=== PATIENT | female | born 1950 | race Caucasian/White ===

== ENCOUNTER 2024-10-28 16:52 | Emergency (ER) | payer MEDICARE, OTHER ==
[2024-10-28 17:10] VITALS: BP 175/75; PULSE 83; RESP 18; TEMP 98.3; O2SAT 100
--- NOTE | 2024-10-28 17:10 | ERPHSYRPT ---
- History of Present Illness Time Seen by Provider: 10/28/24 17:05 Source: patient Exam Limitations: no limitations Physician History: 74-year-old female with chronic renal failure stage V for which patient is undergoing hemodialysis. Today after dialysis patient started bleeding at the dialysis fistula site which constantly bleed for almost 2 hours so she got concerned and came to the emergency room. She has a packing put on the bleeding site which was soaked with the blood. She denies any other injury or bleeding. When patient came to the emergency room her bleeding was almost stopped there was very minimal oozing was coming from the puncture site at the fistula. Fistula has a normal flow. Timing/Duration: today Associated Symptoms: denies symptoms - Review of Systems Constitutional: No Symptoms Eyes: No Symptoms Ears, Nose, & Throat: No Symptoms Respiratory: No Symptoms Cardiac: No Symptoms Abdominal/Gastrointestinal: No Symptoms Genitourinary Symptoms: No Symptoms Musculoskeletal: No Symptoms Skin: No Symptoms Neurological: No Symptoms Endocrine: No Symptoms Hematologic/Lymphatic: Easy Bleeding (from AV fistula site right arm) - Past Medical History Neurological History: Peripheral Neuropathy, Other Cardiac History: Coronary Artery Disease, Hypertension Respiratory History: COPD, Sleep Apnea Endocrine Medical History: Diabetes Type II, Other Musculoskeletal History: Osteoarthritis Other Medical History: PSH: R TKA, 3 CARDIAC STENTS, HYSTERECTOMY, GALL BLADDER, BREAST BIOPSY. PMH: DIALYSIS 3X PER WEEK, PT USES 02 AT NIGHT, FATIGUE - Physical Exam General Appearance: no apparent distress Eye Exam: PERRL/EOMI Ears, Nose, Throat Exam: normal ENT inspection Neck Exam: normal inspection Respiratory Exam: normal breath sounds Cardiovascular Exam: regular rate/rhythm Gastrointestinal/Abdomen Exam: soft Pelvic Exam: not done Rectal Exam: deferred Back Exam: normal inspection Extremity Exam: normal inspection Neurologic Exam: alert, oriented x 3, cooperative Skin Exam: normal color SpO2 Interpretation: normal SpO2: 100 O2 Delivery: Room Air - Course Nursing assessment & vital signs reviewed: Yes - Progress Progress: improved Progress Note: 10/28/24 17:08 Pressure dressing applied. Patient bleeding was completely stopped. Patient is advised to keep that pressure dressing till tomorrow. If symptoms come back advised to come back to the emergency room Counseled pt/family regarding: diagnosis, need for follow-up Medical Desision Making - Independent Historian Additional History obtained from: Spouse - Risk of complications Minimal Risk: Minimal risk of morbidity - Departure Departure Disposition: Home Clinical Impression: Bleeding at insertion site Dialysis AV fistula malfunction Qualifiers: Encounter type: initial encounter Qualified Code(s): T82.590A - Other mechanical complication of surgically created arteriovenous fistula, initial encounter Condition: Stable Critical Care Time: No Referrals: FARA CONTRERAS MD [Primary Care Provider] - Follow up/PCP as directed Additional Instructions: Discharge/Care Plan WILLAM CAZARES was seen on 10/28/24 in the Emergency Room. The patient was counseled regarding Diagnosis,Lab results, Imaging studies, need for follow up and when to return to the Emergency Room. Prescriptions given: Discharge Note I have spoken with the patient and/or caregivers. I have explained the patient's condition, diagnosis and treatment plan based on the information available to me at this time. I have answered the patient's and/or caregiver's questions and addressed any concerns. The patient and/or caregivers have as good understanding of the patient's diagnosis, condition and treatment plan as can be expected at this point. The vital signs have been stable. The patient's condition is stable and appropriate for discharge from the emergency department. The patient will pursue further outpatient evaluation with the primary care physician or other designated or consulting physician as outlined in the discharge instructions. The patient and/or caregivers are agreeable to this plan of care and follow-up instructions have been explained in detail. The patient and/or caregivers have received these instruction. The patient/and or caregivers are aware that any significant change in condition or worsening of symptoms should prompt an immediate return to this or the closest emergency department or call 911. WILLAM CAZARES was seen on 10/28/24 n the Emergency Room. At that time you were treated for an emergent condition, during your visit Laboratory, Radiology and/or other procedures may have been ordered. It is very important that you follow-up with your Primary Care Physician FARA CONTRERAS MD within the next 24-48 hours to review your Emergency Room visit and the final results of testing that was ordered. Some test results such as Urine Cultures, Blood Cultures, and other cultures if ordered will not be finalized for 24-48 hours. If you do not have a Primary Care Provider please call the medical records department at [phone] ext [phone] to obtain a copy of your results or you may sign into our patient portal to obtain these results by visiting us @ [email or web address] and completing the following steps: 1. Click on the Patient Portal link 2. Click the Patient Self Enrollment Link to complete the enrollment form and entering your 3. Once the enrollment form is completed you will receive an email with a temporary ID and password at the email address you provided. 4. Next choose a user name and password. Your user name must be at least 4 characters long and your password must be at least 4 characters long. 5. Choose a security question from the list and provide your answer to the question. If you already have signed into the Health Portal you may access your Health Care Information 20/05 by the following steps: 1. Login to our website @ [email or web address] 2. Enter your original user name and password. FAQS The [facility] Health Portal is an online tool that contains your Lab Results, Radiology Reports, Visit History, Discharge Instructions and Health Summary Lab and Radiology Results will not be available for 72 hours on the portal. The Portal is a secure site, passwords are encryted and URLs are re-written so they cannot be copied and pasted. You and authorized family members are the only ones who can access your Portal. Also there is a timeout feature that protects your information if you leave the Portal page open. If you have technical difficulty please use the Contact Us link on the page this will allow you to submit any questions you have regarding the Portal or you may contact the Medical Record Department at [phone] ext [phone].
== END 2024-10-28 17:43 | disposition home or self-care (01) ==
LOC: ED 16:52
DX: T82.590A Other mechanical complication of surgically created arteriovenous fistula, initial encounter (principal); T82.838A Hemorrhage due to vascular prosthetic devices, implants and grafts, initial encounter; I12.0 Hypertensive chronic kidney disease with stage 5 chronic kidney disease or end stage renal disease; E11.22 Type 2 diabetes mellitus with diabetic chronic kidney disease; N18.5 Chronic kidney disease, stage 5; E11.42 Type 2 diabetes mellitus with diabetic polyneuropathy; Z99.2 Dependence on renal dialysis
CPT/HCPCS: 99281

== ENCOUNTER 2024-12-05 19:56 | Emergency (ER) | payer MEDICARE, OTHER ==
[2024-12-05 20:06] VITALS: TEMP 97.2
--- NOTE | 2024-12-05 20:14 | ERPHSYRPT ---
- History of Present Illness Historian: patient Exam Limitations: no limitations Physician History: Patient has a history of cardiovascular disease. She has had 3 stents. She began having chest pain at rest. She points to her sternal area. She said it radiated up to her neck on the left side. It did not go away or resolve. Is been pretty persistent for the last 2 hours. She has no shortness of breath. She does not have any abdominal pain. She denies nausea vomiting fever chills and other systemic symptoms. She has not had any diaphoresis either.She is on blood thinners Patient states that breathing makes the pain worse.She does not have any infectious symptoms. Allergies/Adverse Reactions: montelukast [From Singulair] Allergy (Verified 12/05/24 20:06) Sulfa (Sulfonamide Antibiotics) Allergy (Verified 12/05/24 20:06) metformin Adverse Reaction (Verified 12/05/24 20:06) Diarrhea morphine Adverse Reaction (Verified 12/05/24 20:06) Vomiting Home Medications: Albuterol Sulfate [Albuterol Sulfate Hfa] 2 puffs IH Q6H PRN PRN 12/05/24 [History] Amoxicillin/Potassium Clav [Amox-Clav 250-125 mg Tablet] 1 tab PO BID 12/05/24 [History] Ascorbic Acid [Vitamin C] 1,000 mg PO DAILY 12/05/24 [History] Aspirin 81 gm Chew [Baby Aspirin 81 mg Chew] 1 tab PO DAILY 12/05/24 [History] Atorvastatin Calcium 80 mg PO HS 12/05/24 [History] B Complex W-C No.20/Folic Acid [Juan J Caps Softgel] 1 tab PO DAILY 12/05/24 [History] Biotin/Lutein [Biotin Plus 5,000 Mcg Tablet] 1 tab PO DAILY 12/05/24 [History] Carbidopa/Levodopa [Carbidopa-Levo 25-100 mg Odt] 1 tab PO BID 12/05/24 [History] Clopidogrel Bisulfate [Plavix] 1 tab PO DAILY 12/05/24 [History] Diclofenac Sodium 1 tab PO BID 12/05/24 [History] Duloxetine HCl 30 mg [Cymbalta 30 MG Capsule] 1 tab PO BID 12/05/24 [History] Ezetimibe 10 mg [Zetia 10 MG] 1 tab PO HS 12/05/24 [History] Fexofenadine HCl [Emily Allergy] 180 mg PO DAILY 12/05/24 [History] Fludrocortisone Acetate 0.1 mg PO DAILY 12/05/24 [History] Fluticasone Propionate [24 Hour Allergy] 9.9 ml NS DAILY PRN PRN 12/05/24 [History] Gabapentin 600 mg PO HS 12/05/24 [History] Insulin Glargine,Hum.rec.anlog [Lantus] 30 units SQ HS 12/05/24 [History] Insulin Lispro [Humalog] 20 units SQ TID 12/05/24 [History] Meclizine HCl 25 mg [Antivert 25 mg] 1 tab PO HS PRN 12/05/24 [History] Methylprednisolone 4 mg [Medrol 4 mg] 1 tab PO DAILY 12/05/24 [History] Metoprolol Succinate 25 mg Xl* [Toprol-Xl 25MG Tablets] 1 tab PO DAILY 12/05/24 [History] Multivitamin,Therapeutic [Thera-Tabs] 1 tab PO BID 12/05/24 [History] Hx Tetanus, Diphtheria Vaccination/Date Given: Yes Hx Influenza Vaccination/Date Given: Yes Hx Pneumococcal Vaccination/Date Given: Yes Travel Risk - Emerging Infectious Disease Are you exhibiting symptoms associated with any current EIDs: No - Review of Systems Constitutional: No Symptoms Eyes: No Symptoms Ears, Nose, & Throat: No Symptoms Respiratory: No Symptoms Cardiac: Chest Pain Abdominal/Gastrointestinal: No Symptoms, No Abdominal Pain, No Nausea, No Vomiting Skin: No Symptoms Neurological: No Symptoms All Other Systems: Reviewed and Negative - Past Medical History Pertinent Past Medical History: Yes Neurological History: Peripheral Neuropathy, Other Cardiac History: Coronary Artery Disease, Hypertension Respiratory History: COPD, Sleep Apnea Endocrine Medical History: Diabetes Type II, Other Musculoskeletal History: Osteoarthritis History: Dialysis, Renal Disease Other Medical History: PSH: R TKA, 3 CARDIAC STENTS, HYSTERECTOMY, GALL BLADDER, BREAST BIOPSY. PMH: DIALYSIS 3X PER WEEK, PT USES 02 AT NIGHT, FATIGUE - Past Surgical History Past Surgical History: Yes Cardiac: Cardiac Stent Gastrointestinal: Cholecystectomy Genitourinary: Other Musculoskeletal: Joint Replacement Female Surgical History: Hysterectomy Other Surgical History: kidney stone removal, hernia, fatty tumor removal, right knee replacement, colonoscopy, egd, cardiac stents MID LAD and PROX-LAD - Social History Smoking Status: Never smoker Exposure to second hand smoke: No Drug Use: none - Social Determinants of Health Will the patient participate in the screening: Declined to provide - Nursing Vital Signs Nursing Vital Signs: Initial Vital Signs Temperature 97.2 F 12/05/24 20:00 Pulse Rate 95 H 12/05/24 20:00 Respiratory Rate 26 H 12/05/24 20:00 Blood Pressure 166/85 12/05/24 20:00 O2 Sat by Pulse Oximetry 93 L 12/05/24 20:00 Pain Scale Pain Intensity 8 - Physical Exam General Appearance: no apparent distress Eye Exam: PERRL/EOMI Ears, Nose, Throat Exam: normal ENT inspection Respiratory Exam: normal breath sounds, lungs clear, No chest tenderness, No respiratory distress Cardiovascular Exam: regular rate/rhythm, normal heart sounds, normal peripheral pulses Back Exam: normal inspection Extremity Exam: normal inspection Neurologic Exam: alert, oriented x 3 Skin Exam: normal color, warm, dry SpO2: 93 - Course Nursing assessment & vital signs reviewed: Yes EKG Interpreted by Me: Sinus Rhythm, NORMAL INTERVALS, NORMAL QRS, Ischemic ST-T changes (Possible ischemia in the lateral leads. An old EKG was not available for comparison.) Ordered Tests: Active Orders 24 hr Category Date Time Status EKG-ER Only STAT Care 12/05/24 20:20 Active CHEST 1 VIEW (PORTABLE) Stat Exams 12/05/24 21:09 Completed BLOOD CULTURE Stat Lab 12/05/24 23:12 Ordered BNPII [NT PRO BNPII] Stat Lab 12/05/24 21:30 Received CBC W DIFF Stat Lab 12/05/24 20:22 Completed CMP Stat Lab 12/05/24 20:22 Completed D-DIMER QUANTITATIVE Stat Lab 12/05/24 21:30 Completed Lactic Acid Stat Lab 12/05/24 23:12 Ordered TROPONIN Q4H Lab 12/05/24 20:22 Completed TROPONIN Q4H Lab 12/06/24 00:30 Ordered TROPONIN Q4H Lab 12/06/24 04:30 Ordered Medication Summary Generic Name Dose Route Start Last Admin Trade Name Freq PRN Reason Stop Dose Admin Lorazepam 1 mg 12/05/24 22:02 12/05/24 22:10 Lorazepam 2 Mg/1 Ml 2 Mg Vial IV 01/04/25 22:01 1 mg PRN PRN Administration CIWA SCORE Lab/Rad Data: Laboratory Result Diagrams 12/05/24 20:22 12/05/24 20:22 Laboratory Results 12/05/24 12/05/24 12/05/24 Range/Units 21:30 20:30 20:22 WBC (3.98-10.04) x10^3/uL RBC (3.93-5.22) x10^6/uL Hgb (11.2-15.7) g/dL Hct (34.1-44.9) % MCV (79.4-94.8) fL MCH (25.6-32.2) pg MCHC (32.2-35.5) g/dL RDW (11.7-14.4) % Plt Count (182-369) x10^3/uL MPV (9.4-12.3) fL Gran % (34.0-71.1) % Immature Gran % (Auto) (0.001-0.429) % Nucleat RBC Rel Count (0.00-0.2) % Eos # (Auto) (0.04-0.36) x10^3/uL Immature Gran # (Auto) (0.001-0.031) x10^3u/L Absolute Lymphs (auto) (1.18-3.74) x10^3/uL Absolute Monos (auto) (0.24-0.86) x10^3/uL Absolute Nucleated RBC (0.00-0.012) x10^3u/L Lymphocytes % (19.3-51.7) % Monocytes % (4.7-12.5) % Eosinophils % (0.7-5.8) % Basophils % (0.1-1.2) % Absolute Granulocytes (1.56-6.13) x10^3/uL Basophils # (0.01-0.08) x10^3/uL D-Dimer 1.84 H* (0.0-0.50) mg/L Sodium (135-145) mmol/L Potassium (3.5-5.1) mmol/L Chloride (98-107) mmol/L Carbon Dioxide (22-30) mmol/L Anion Gap (5-15) MEQ/L BUN (7-17) mg/dL Creatinine (0.52-1.04) mg/dL Estimated GFR ML/MIN Glucose (74-106) mg/dL Calcium (8.4-10.2) mg/dL Total Bilirubin (0.2-1.3) mg/dL AST (14-36) U/L ALT (0-35) U/L Alkaline Phosphatase (38-126) U/L Troponin I < 0.012 (0.000-0.033) ng/mL Serum Total Protein (6.3-8.2) g/dL Albumin (3.5-5.0) g/dL Influenza Type A Ag NEGATIVE (NEGATIVE) Influenza Type B Ag NEGATIVE (NEGATIVE) RSV (PCR) NEGATIVE (NEGATIVE) SARS-CoV-2 (PCR) NEGATIVE (NEGATIVE) 12/05/24 12/05/24 Range/Units 20:22 20:22 WBC 23.2 H (3.98-10.04) x10^3/uL RBC 2.59 L (3.93-5.22) x10^6/uL Hgb 7.6 L (11.2-15.7) g/dL Hct 24.8 L (34.1-44.9) % MCV 95.8 H (79.4-94.8) fL MCH 29.3 (25.6-32.2) pg MCHC 30.6 L (32.2-35.5) g/dL RDW 16.6 H (11.7-14.4) % Plt Count 411 H (182-369) x10^3/uL MPV 9.4 (9.4-12.3) fL Gran % 85.4 H (34.0-71.1) % Immature Gran % (Auto) 0.6 H (0.001-0.429) % Nucleat RBC Rel Count 0.0 (0.00-0.2) % Eos # (Auto) 0.51 H (0.04-0.36) x10^3/uL Immature Gran # (Auto) 0.15 H (0.001-0.031) x10^3u/L Absolute Lymphs (auto) 1.26 (1.18-3.74) x10^3/uL Absolute Monos (auto) 1.42 H (0.24-0.86) x10^3/uL Absolute Nucleated RBC 0.00 (0.00-0.012) x10^3u/L Lymphocytes % 5.4 L (19.3-51.7) % Monocytes % 6.1 (4.7-12.5) % Eosinophils % 2.2 (0.7-5.8) % Basophils % 0.3 (0.1-1.2) % Absolute Granulocytes 19.74 H (1.56-6.13) x10^3/uL Basophils # 0.07 (0.01-0.08) x10^3/uL D-Dimer (0.0-0.50) mg/L Sodium 138 (135-145) mmol/L Potassium 3.8 (3.5-5.1) mmol/L Chloride 95 L (98-107) mmol/L Carbon Dioxide 32 H (22-30) mmol/L Anion Gap 14.5 (5-15) MEQ/L BUN 32 H (7-17) mg/dL Creatinine 4.57 H (0.52-1.04) mg/dL Estimated GFR 9.4 ML/MIN Glucose 144 H (74-106) mg/dL Calcium 9.4 (8.4-10.2) mg/dL Total Bilirubin 0.80 (0.2-1.3) mg/dL AST 33 (14-36) U/L ALT 9 (0-35) U/L Alkaline Phosphatase 90 (38-126) U/L Troponin I (0.000-0.033) ng/mL Serum Total Protein 6.9 (6.3-8.2) g/dL Albumin 3.9 (3.5-5.0) g/dL Influenza Type A Ag (NEGATIVE) Influenza Type B Ag (NEGATIVE) RSV (PCR) (NEGATIVE) SARS-CoV-2 (PCR) (NEGATIVE) - Progress Progress: unchanged Air Movement: good Progress Note: Patient was stable throughout stay. We got a chest x-ray on her. There There was findings consistent with a pneumonia and some mild congestion.She did have an elevated white count.Her troponin was not elevated.She did have an elevated D-dimer but she is not really presenting as a PE. She is on Plavix already.I believe that her problem is a pneumonia. Her EKG was done and it was interpreted by me. There is no acute changes consistent with ACS.I spoke with the hospitalist at [facility] her name was Dr. Stoner. She agreed to accept the patient in transfer. I am going to start her on Zithromax and Rocephin I also ordered blood cultures and lactic acid. 12/05/24 23:13 12/05/24 23:14 - Departure Departure Disposition: Transfer Clinical Impression: Pneumonia Condition: Good Critical Care Time: No Referrals: FARA CONTRERAS MD [Primary Care Provider] - Follow up/PCP as directed
[2024-12-05 20:25] LABS: Absolute Neutrophil Ct (ANC) 19.74 x10^3/uL (1.56-6.13); BASOPHIL % 0.3 % (0.1-1.2); Basophil (Absolute #) 0.07 x10^3/uL (0.01-0.08); Eosinophil % 2.2 % (0.7-5.8); Eosinophil (Absolute #) 0.51 x10^3/uL (0.04-0.36); Hematocrit 24.8 % (34.1-44.9); Hemoglobin 7.6 g/dL (11.2-15.7); IMMATURE GRAN # 0.15 x10^3u/L (0.001-0.031); IMMATURE GRAN % 0.6 % (0.001-0.429); Lymphocyte (Absolute #) 1.26 x10^3/uL (1.18-3.74); Lymphocytes % 5.4 % (19.3-51.7); Mean Cell Volume 95.8 fL (79.4-94.8); Mean Corpuscular Hemoglobin 29.3 pg (25.6-32.2); Mean Corpuscular Hgb Concent. 30.6 g/dL (32.2-35.5); Mean Platelet Volume 9.4 fL (9.4-12.3); Monocyte (Absolute #) 1.42 x10^3/uL (0.24-0.86); Monocytes % 6.1 % (4.7-12.5); Neutrophil % 85.4 % (34.0-71.1); Platelet Count 411 x10^3/uL (182-369); Red Blood Count 2.59 x10^6/uL (3.93-5.22); Red Cell Distribution Width 16.6 % (11.7-14.4); White Blood Count 23.2 x10^3/uL (3.98-10.04)
[2024-12-05 20:37] LABS: ALBUMIN 3.9 g/dL (3.5-5.0); ANION GAP 14.5 MEQ/L (5-15); BILIRUBIN,TOTAL 0.8 mg/dL (0.2-1.3); Calcium 9.4 mg/dL (8.4-10.2); Creatinine 1 4.57 mg/dL (0.52-1.04); EST GLOMERULAR FILTRATION RATE 9.4 ML/MIN; Potassium 3.8 mmol/L (3.5-5.1); Total Protein 6.9 g/dL (6.3-8.2)
[2024-12-05 21:24] LABS: INFLUENZA A NEGATIVE (NEGATIVE); INFLUENZA B NEGATIVE (NEGATIVE); RESPIRATORY SYNCTIAL VIRUS NEGATIVE (NEGATIVE); SARS-CoV-2 Xpert Express NEGATIVE (NEGATIVE)
[2024-12-05] MEDS ORDERED: Ativan 2 MG/1 ML VIAL ONE (22:09)
[2024-12-05] MEDS: Ativan 2 MG/1 ML VIAL IV PRN (22:10)
--- NOTE | 2024-12-05 22:14 | XRAY ---
Indication: Chest pain. Comparison: None Portable chest demonstrates cardiomegaly, central vascular congestion, and small bibasilar effusions favoring cardiac decompensation/CHF. Superimposed pneumonia not completely excluded. Bony thorax intact with osteopenia and degenerative changes.
[2024-12-06 00:04] VITALS: BP 151/104; PULSE 109; RESP 21; O2SAT 100
== END 2024-12-06 00:20 | disposition short-term general hospital (02) ==
LOC: ED 19:56
DX: J18.9 Pneumonia, unspecified organism (principal); R07.9 Chest pain, unspecified; E11.42 Type 2 diabetes mellitus with diabetic polyneuropathy; I12.0 Hypertensive chronic kidney disease with stage 5 chronic kidney disease or end stage renal disease; E11.22 Type 2 diabetes mellitus with diabetic chronic kidney disease; N18.6 End stage renal disease; Z79.02 Long term (current) use of antithrombotics/antiplatelets; Z79.4 Long term (current) use of insulin; Z79.899 Other long term (current) drug therapy; Z99.2 Dependence on renal dialysis
CPT/HCPCS: 0241U; 36415; 71045; 80053; 83605; 83880; 84484; 85025; 85379; 87040; 93005; 96374; 99285; J2060

== ENCOUNTER 2024-12-31 12:07 | Emergency (ER) | payer MEDICARE, OTHER ==
[2024-12-31 12:24] VITALS: TEMP 98.2; O2SAT 98
[2024-12-31] MEDS ORDERED: DUONEB 0.5-3 MG/3 ml Neb IH ONE (12:36)
[2024-12-31 12:39] LABS: Absolute Neutrophil Ct (ANC) 9.24 x10^3/uL (1.56-6.13); BASOPHIL % 0.6 % (0.1-1.2); Basophil (Absolute #) 0.07 x10^3/uL (0.01-0.08); Eosinophil % 7.4 % (0.7-5.8); Eosinophil (Absolute #) 0.84 x10^3/uL (0.04-0.36); Hematocrit 27.7 % (34.1-44.9); Hemoglobin 8.6 g/dL (11.2-15.7); IMMATURE GRAN # 0.04 x10^3u/L (0.001-0.031); IMMATURE GRAN % 0.4 % (0.001-0.429); Lymphocyte (Absolute #) 0.58 x10^3/uL (1.18-3.74); Lymphocytes % 5.1 % (19.3-51.7); Mean Cell Volume 96.5 fL (79.4-94.8); Mean Platelet Volume 10.2 fL (9.4-12.3); Monocyte (Absolute #) 0.62 x10^3/uL (0.24-0.86); Monocytes % 5.4 % (4.7-12.5); Neutrophil % 81.1 % (34.0-71.1); Platelet Count 327 x10^3/uL (182-369); Red Blood Count 2.87 x10^6/uL (3.93-5.22); Red Cell Distribution Width 16.3 % (11.7-14.4); White Blood Count 11.4 x10^3/uL (3.98-10.04)
[2024-12-31] MEDS: DUONEB 0.5-3 MG/3 ml Neb IH ONE (12:39)
--- NOTE | 2024-12-31 12:43 | ERPHSYRPT ---
- History of Present Illness Time Seen by Provider: 12/31/24 12:15 Source: patient, family Exam Limitations: no limitations Patient Subjective Stated Complaint: shortness of breath and wheezing, pt had pnuemonia approx a month ago Triage Nursing Assessment: Pt brought to the ER by her , hypertensive, denies pain, pulses normal, skin n/w/d, pulses normal, skin n/w/d, tere lower leg edema, wears 2L NC, wheezing, denies chest pain, productive cough last night but non productive today Physician History: 74 years old female with multiple medical problems including coronary artery disease with stenting, congestive heart failure, chronic respiratory failure on 2 L oxygen, diabetes mellitus, ESRD on dialysis 3 times a week presented in the ER with increased wheezing since yesterday. Patient does not have nebuli zer/inhaler at home. Reports getting more short winded with ambulation despite being on oxygen and a little better with oxygen on resting. Has chronic cough since she had a pneumonia almost a month ago which she was admitted at [facility] and had thoracentesis done. Denies any fever or chills. Has chronic lower extremity swelling which patient reports a little better than usual. No chest pain or palpitations reported. Last dialysis was yesterday. No known sick contact. Allergies/Adverse Reactions: montelukast [From [facility]] Allergy (Verified 12/31/24 12:10) Sulfa (Sulfonamide Antibiotics) Allergy (Verified 12/31/24 12:10) metformin Adverse Reaction (Verified 12/31/24 12:10) Diarrhea morphine Adverse Reaction (Verified 12/31/24 12:10) Vomiting Home Medications: Albuterol Sulfate [Albuterol Sulfate Hfa] 2 puffs IH Q6H PRN PRN 12/05/24 [History] Ascorbic Acid [Vitamin C] 1,000 mg PO DAILY 12/05/24 [History] Aspirin 81 gm Chew [Baby Aspirin 81 mg Chew] 1 tab PO DAILY 12/05/24 [History] Atorvastatin Calcium 80 mg PO HS 12/05/24 [History] B Complex W-C No.20/Folic Acid [Charlton Caps Softgel] 1 tab PO DAILY 12/05/24 [History] Biotin/Lutein [Biotin Plus 5,000 Mcg Tablet] 1 tab PO DAILY 12/05/24 [History] Carbidopa/Levodopa [Carbidopa-Levo 25-100 mg Odt] 1 tab PO BID 12/05/24 [History] Clopidogrel Bisulfate [Plavix] 1 tab PO DAILY 12/05/24 [History] Diclofenac Sodium 1 tab PO BID 12/05/24 [History] Duloxetine HCl 30 mg [Cymbalta 30 MG Capsule] 1 tab PO BID 12/05/24 [History] Ezetimibe 10 mg [Zetia 10 MG] 1 tab PO HS 12/05/24 [History] Fexofenadine HCl [Emily Allergy] 180 mg PO DAILY 12/05/24 [History] Fludrocortisone Acetate 0.1 mg PO DAILY 12/05/24 [History] Fluticasone Propionate [24 Hour Allergy] 9.9 ml NS DAILY PRN PRN 12/05/24 [History] Gabapentin 600 mg PO HS 12/05/24 [History] Insulin Glargine,Hum.rec.anlog [Lantus] 30 units SQ HS 12/05/24 [History] Insulin Lispro [Humalog] 20 units SQ TID 12/05/24 [History] Meclizine HCl 25 mg [Antivert 25 mg] 1 tab PO HS PRN 12/05/24 [History] Methylprednisolone 4 mg [Medrol 4 mg] 1 tab PO DAILY 12/05/24 [History] Metoprolol Succinate 25 mg Xl* [Toprol-Xl 25MG Tablets] 1 tab PO DAILY 12/05/24 [History] Multivitamin,Therapeutic [Thera-Tabs] 1 tab PO BID 12/05/24 [History] Mirtazapine 7.5 mg PO DAILY 12/31/24 [History] Hx Tetanus, Diphtheria Vaccination/Date Given: Yes Hx Influenza Vaccination/Date Given: Yes Hx Pneumococcal Vaccination/Date Given: Yes Travel Risk - International Travel Have you traveled outside of the country in past 3 weeks: No - Emerging Infectious Disease Are you exhibiting symptoms associated with any current EIDs: Yes Symptoms: Shortness of Breath - Review of Systems Constitutional: No Symptoms Eyes: No Symptoms Ears, Nose, & Throat: No Symptoms Respiratory: Cough, Dyspnea, Dyspnea on Exertion (ORTEZ), Wheezing Cardiac: Edema Abdominal/Gastrointestinal: No Symptoms Genitourinary Symptoms: No Symptoms Neurological: No Symptoms Psychological: No Symptoms Endocrine: No Symptoms Hematologic/Lymphatic: No Symptoms Immunological/Allergic: No Symptoms - Past Medical History Pertinent Past Medical History: Yes Neurological History: Other Cardiac History: Congestive Heart Failure, Hypertension, Other Respiratory History: CHF Endocrine Medical History: Diabetes Type II Musculoskeletal History: Arthritis GI Medical History: Gallbladder Disease History: Dialysis, Renal Disease Other Medical History: RECENTLY HOSPITALIZED WITH PNUEMONIA, SEPSIS, ETC. AND HAS BEEN HOME A FEW WEEKS NOW. - Past Surgical History Past Surgical History: Yes Cardiac: Cardiac Stent Gastrointestinal: Cholecystectomy Genitourinary: Other Musculoskeletal: Joint Replacement Female Surgical History: Hysterectomy Other Surgical History: kidney stone removal, hernia, fatty tumor removal, right knee replacement, colonoscopy, egd, cardiac stents MID LAD and PROX-LAD - Social History Smoking Status: Never smoker Exposure to second hand smoke: No Drug Use: none - Social Determinants of Health Will the patient participate in the screening: Yes Do you worry about a steady place to live?: No Do you have any problems with any of the following?: No known problems In the past 12 months,have you had to go without utilities?: No Transportation Issues: No Has anyone in your support network made you feel unsafe?: No Have you or anyone in your house had to go w/o enough food: No - Nursing Vital Signs Nursing Vital Signs: Initial Vital Signs Temperature 98.2 F 12/31/24 12:11 Pulse Rate 87 12/31/24 12:11 Respiratory Rate 17 12/31/24 12:11 Blood Pressure 200/86 12/31/24 12:11 O2 Sat by Pulse Oximetry 99 12/31/24 12:11 Pain Scale Pain Intensity 0 - Physical Exam General Appearance: no apparent distress Eye Exam: PERRL/EOMI Ears, Nose, Throat Exam: hearing grossly normal Neck Exam: normal inspection, non-tender, full range of motion Respiratory Exam: rhonchi, wheezing, No respiratory distress, No accessory mu scle use Cardiovascular/Chest Exam: normal heart sounds, regular rate/rhythm Extremity Exam: non-tender, normal range of motion Neurologic Exam: alert, oriented x 3, cooperative, shield runner II-XII nml as tested Skin Exam: normal color SpO2 Interpretation: O2 applied SpO2: 98 O2 Delivery: Nasal Cannula (2 L) - Course EKG Interpreted by Me: RATE (84), Sinus Rhythm, NORMAL AXIS, NORMAL INTERVALS, Other (Nonspecific T wave changes) Ordered Tests: Active Orders 24 hr Category Date Time Status [employer] Shift Lead STAT Care 12/31/24 12:30 Active EKG-ER Only STAT Care 12/31/24 12:30 Active IV Insertion STAT Care 12/31/24 12:30 Active CHEST 1 VIEW (PORTABLE) Stat Exams 12/31/24 12:30 Completed CBC W DIFF Stat Lab 12/31/24 12:30 Completed CMP Stat Lab 12/31/24 12:30 Completed MAGNESIUM Stat Lab 12/31/24 12:30 Completed NT PRO BNPII Stat Lab 12/31/24 12:30 Completed TROPONIN Q4H Lab 12/31/24 12:30 Completed TROPONIN Q4H Lab 12/31/24 16:30 Ordered TROPONIN Q4H Lab 12/31/24 20:30 Ordered Medication Summary Discontinued Medications Generic Name Dose Route Start Last Admin Trade Name Freq PRN Reason Stop Dose Admin Albuterol/Ipratropium 3 ml 12/31/24 12:30 12/31/24 12:39 Ipratropium/Albuterol Sulfate 3 Ml Ampul.Neb IH 12/31/24 12:31 3 ml STAT ONE Administration Albuterol/Ipratropium Confirm 12/31/24 12:36 Ipratropium/Albuterol Sulfate 3 Ml Ampul.Neb Administered 12/31/24 12:37 Dose 3 ml IH .STK-MED ONE Furosemide 40 mg 12/31/24 13:06 12/31/24 13:16 Furosemide 40 Mg/4 Ml Vial IV 12/31/24 13:07 Not Given STAT ONE Furosemide Confirm 12/31/24 13:09 Furosemide 40 Mg/4 Ml Vial Administered 12/31/24 13:10 Dose 40 mg .ROUTE .STK-MED ONE Nitroglycerin 1 gm 12/31/24 14:29 12/31/24 14:33 Nitroglycerin 1 Gm Packet TOP 12/31/24 14:30 1 gm STAT ONE Administration Nitroglycerin Confirm 12/31/24 14:30 Nitroglycerin 1 Gm Packet Administered 12/31/24 14:31 Dose 1 gm .ROUTE .STK-MED ONE Lab/Rad Data: Laboratory Result Diagrams 12/31/24 12:30 12/31/24 12:30 Laboratory Results 12/31/24 12/31/24 12/31/24 Range/Units 12:45 12:30 12:30 WBC 11.4 H (3.98-10.04) x10^3/uL RBC 2.87 L (3.93-5.22) x10^6/uL Hgb 8.6 L (11.2-15.7) g/dL Hct 27.7 L (34.1-44.9) % MCV 96.5 H (79.4-94.8) fL MCH 30.0 (25.6-32.2) pg MCHC 31.0 L (32.2-35.5) g/dL RDW 16.3 H (11.7-14.4) % Plt Count 327 (182-369) x10^3/uL MPV 10.2 (9.4-12.3) fL Gran % 81.1 H (34.0-71.1) % Immature Gran % (Auto) 0.4 (0.001-0.429) % Nucleat RBC Rel Count 0.0 (0.00-0.2) % Eos # (Auto) 0.84 H (0.04-0.36) x10^3/uL Immature Gran # (Auto) 0.04 H (0.001-0.031) x10^3u/L Absolute Lymphs (auto) 0.58 L (1.18-3.74) x10^3/uL Absolute Monos (auto) 0.62 (0.24-0.86) x10^3/uL Absolute Nucleated RBC 0.00 (0.00-0.012) x10^3u/L Lymphocytes % 5.1 L (19.3-51.7) % Monocytes % 5.4 (4.7-12.5) % Eosinophils % 7.4 H (0.7-5.8) % Basophils % 0.6 (0.1-1.2) % Absolute Granulocytes 9.24 H (1.56-6.13) x10^3/uL Basophils # 0.07 (0.01-0.08) x10^3/uL Sodium 143 (135-145) mmol/L Potassium 4.2 (3.5-5.1) mmol/L Chloride 95 L (98-107) mmol/L Carbon Dioxide 39 H (22-30) mmol/L Anion Gap 13.3 (5-15) MEQ/L BUN 36 H (7-17) mg/dL Creatinine 4.96 H (0.52-1.04) mg/dL Estimated GFR 8.6 ML/MIN Glucose 183 H (74-106) mg/dL Calcium 9.5 (8.4-10.2) mg/dL Magnesium 2.0 (1.6-2.3) mg/dL Total Bilirubin 0.70 (0.2-1.3) mg/dL AST 36 (14-36) U/L ALT 11 (0-35) U/L Alkaline Phosphatase 90 (38-126) U/L Troponin I < 0.012 (0.000-0.033) ng/mL NT-Pro-B Natriuret Pep 51726 (<300) pg/mL Serum Total Protein 7.8 (6.3-8.2) g/dL Albumin 4.5 (3.5-5.0) g/dL Influenza Type A Ag NEGATIVE (NEGATIVE) Influenza Type B Ag NEGATIVE (NEGATIVE) RSV (PCR) NEGATIVE (NEGATIVE) SARS-CoV-2 (PCR) NEGATIVE (NEGATIVE) Slides for Path Review YES - Progress Progress: improved, re-examined Air Movement: good Progress Note: 12/31/24 15:09 74 years old is evaluated in the ER for wheezing, cough and some difficulty breathing. Patient does not have inhaler Cellufresh nebulizer at home. She has bilateral diffuse wheezing, given neb treatment and feeling much improved on reevaluation. Chest x-ray showed improvement in pleural effusion but still have central venous congestion suggesting CHF, patient does not make any urine and Lasix would not be a choice but part of her symptoms are secondary to ESRD with dialysis and she is due for dialysis tomorrow. Patient blood pressure is elevated and she does take midodrine 10 mg 3 times a day, blood pressure was in 190s, placed on Nitropaste and it is improved in 170s, patient on 2 L her oxygen saturation around 99%. She is not any distress. I think patient needs evaluation with cardiology, call [facility] transfer center, no beds are available. Discussed with patient about transfer to other facilities which she does not want to go and would like to go home. I think patient has a combination of bronchitis and will give her DuoNebs and Z- Rikki to go home and recommended keep appointment with dialysis tomorrow as part of the CHF on the x-ray is also from fluid overload from ESRD. She is advised to follow-up with her primary firer watertender for reevaluation. Patient blood pressure is elevated, recommended decreasing the dose of midodrine to 5 mg rather than 10 and monitoring blood pressure. Discussed signs symptoms of worsening needing return to ER which she seems un derstanding. Stable for discharge. Complexity of problem addressed: Acute moderate Complexity of data reviewed/analyzed: Moderate to extensive Risk of complication/morbidity/mortality from condition: Moderate Blood Culture(s) Obtained: No Antibiotics given: No Counseled pt/family regarding: lab results, diagnosis, need for follow-up, rad results Medical Desision Making - Independent Historian Additional History obtained from: Spouse - Diagnostic Testing Diagnostic test were ordered, analyzed, and reviewed by me: Yes Radiological Interpretation: Reviewed by me - Risk of complications The pt has a mod risk of morbidity or mortality based on: Need for prescription drug management - Departure Departure Disposition: Home Clinical Impression: CHF (congestive heart failure), Uncontrolled hypertension, Acute bronchitis Condition: Stable Critical Care Time: No Referrals: FARA CONTRERAS MD [Primary Care Provider] - Follow up with PCP 1 day Instructions: Heart Failure, Heart failure in adults - Discharge instructions Additional Instructions: Follow-up with your primary care and firer watertender for reevaluation. Take low- salt diet. Decrease dose of midodrine to half but keep monitoring your blood pressure to make sure it does not drop below 120. Return to ER for worsening of wheezing or if having difficulty breathing etc. Prescriptions: Albuterol/Ipratropium 3ml Neb* [DUONEB 0.5-3 MG/3 ml Neb] 3 ml IH Q4-6HPRN PRN 14 Days #60 amp PRN Reason: Shortness Of Breath/Wheezing Azithromycin 250 mg [Zithromax 250 MG TABLET] 250 mg PO ZPACK #6 tablet
--- NOTE | 2024-12-31 13:00 | XRAY ---
Indication: Wheezing. Comparison: December 05, 2024 Portable chest again demonstrates cardiomegaly, central vascular congestion, and small bibasilar effusions all less than before again favoring cardiac decompensation/CHF. Superimposed pneumonia not completely excluded. Bony thorax intact again with osteopenia and degenerative changes.
[2024-12-31] MEDS ORDERED: Lasix 40 MG/4 ML ONE (13:09)
[2024-12-31] MEDS: Lasix 40 MG/4 ML IV ONE (13:10)
[2024-12-31 13:24] LABS: ALBUMIN 4.5 g/dL (3.5-5.0); ALKALINE PHOSPHATASE 90 U/L (38-126); ANION GAP 13.3 MEQ/L (5-15); BLOOD UREA NITROGEN 36 mg/dL (7-17); CHLORIDE 95 mmol/L (98-107); Calcium 9.5 mg/dL (8.4-10.2); Carbon Dioxide 39 mmol/L (22-30); Creatinine 1 4.96 mg/dL (0.52-1.04); EST GLOMERULAR FILTRATION RATE 8.6 ML/MIN; Glucose 183 mg/dL (74-106); Potassium 4.2 mmol/L (3.5-5.1); SGOT/AST 36 U/L (14-36); SGPT/ALT 11 U/L (0-35); SODIUM 143 mmol/L (135-145); TROPONIN < 0.012 ng/mL (0.000-0.033); Total Protein 7.8 g/dL (6.3-8.2)
[2024-12-31 13:38] LABS: INFLUENZA A NEGATIVE (NEGATIVE); INFLUENZA B NEGATIVE (NEGATIVE); RESPIRATORY SYNCTIAL VIRUS NEGATIVE (NEGATIVE); SARS-CoV-2 Xpert Express NEGATIVE (NEGATIVE)
[2024-12-31 14:05] LABS: NT PRO BNPII 69800 pg/mL (<300)
[2024-12-31] MEDS ORDERED: NITRO-BID 2% UD PACKETS ONE (14:30)
[2024-12-31] MEDS: NITRO-BID 2% UD PACKETS TOP ONE (14:33)
[2024-12-31 15:14] LABS: Slide Review 1 YES
[2024-12-31 15:17] VITALS: BP 188/92; PULSE 88; RESP 21
== END 2024-12-31 15:40 | disposition home or self-care (01) ==
LOC: ED 12:07
DX: I13.2 Hypertensive heart and chronic kidney disease with heart failure and with stage 5 chronic kidney disease, or end stage renal disease (principal); I50.9 Heart failure, unspecified; E11.22 Type 2 diabetes mellitus with diabetic chronic kidney disease; N18.6 End stage renal disease; J20.9 Acute bronchitis, unspecified; R06.02 Shortness of breath; R05.3 Chronic cough; Z79.02 Long term (current) use of antithrombotics/antiplatelets; Z79.4 Long term (current) use of insulin; Z79.52 Long term (current) use of systemic steroids; Z79.899 Other long term (current) drug therapy; Z99.81 Dependence on supplemental oxygen
CPT/HCPCS: 0241U; 36415; 71045; 80053; 83735; 83880; 84484; 85025; 93005; 93041; 94640; 99285; 99284; J1940; A9270-GY